=== PATIENT | female | born 1995 | race African-American/Black ===

== ENCOUNTER 2024-04-24 10:14 | Outpatient (REF) | payer OTHER, MEDICAID, SELFPAY ==
--- NOTE | ~2024-04-24 | XR_ITS ---
EXAMINATION: XR HAND 3 OR MORE VIEWS RIGHT HISTORY: M79.641 - Pain in right hand COMPARISON: There are no prior studies available for comparison. FINDINGS: Three views of the right hand are submitted. Osseous mineralization is normal. There is no fracture or dislocation. The joint spaces are preserved. The soft tissues are unremarkable. XR/XR hand RT min 3V IMPRESSION: Unremarkable examination of the right hand. Electronically signed by: Dusty Luna MD 04/25/2024 07:59 AM EDT
--- OUTSIDE RECORDS SUMMARY | 2024-04-24 11:41 | XMS_ITS | Encounter Summary ---
Author Organization [facility] Address [address] [place] [address] Care Team Providers Care Truck Bracer Name Role Phone Jayne Dueñas MD Primary Care Provider Unavailab Aubrey Pringle MD Primary Care Provider Jayne Yoo MD Primary Care Provider Unavailab mcnamara Encounter Details Date Type Department Care Team Description [facility]28[facility] Records [address] [place] [address] Abstract, Provider Social History Tobacco Use Types Packs/Day Years Used Date Smoking Tobacco: Never Smokeless Tobacco: Never Alcohol Use Standard Drinks/Week Comments No 0 (1 standard drink = 0.6 oz pur e alcohol) Sex Assigned at Date Recorded Not on file documented as of this encounter Plan of Treatment Not on file documented as of this encounter Visit Diagnoses Not on filedocumented in this encounter Care Teams Truck Bracer Relationship Specialty Start Date End Date Jayne Dueñas MD PCP - General 12/18/06 11/23/16 Aubrey Montano MD PCP - General Internal Medicine 11/24/16 03/27/19 Jayne Dueñas MD PCP - General Pediatrics 03/28/19 documented as of this encounter
--- OUTSIDE RECORDS SUMMARY | 2024-04-24 11:41 | XMS_ITS | Encounter Summary ---
Author Organization [facility] Address [address] [place] [address] Care Team Providers Care Opinion Polls Survey Worker Name Role Phone Name, Jayme QUIROGA Primary Care Provider [phone] Reason for Visit * Reason Onset Date Comments Appointment 05/06/2022 Encounter Details Date Type Department Care Team ([facility] st Contact Info) Description 05/06/2022 Telephone [facility] [address] [place] [address] Afsaneh Schmidt, DDS [address] [place] [address] Appointment Social History Tobacco Use Types Packs/Day Years Used Date Smoking Tobacco: Never Smokeless Tobacco: Never Comments Unknown Sex and Gender Information Value Date Recorded Sex Assigned at Female 12/13/2021 10:37 AM EDT Legal Sex Female 10:37 AM EDT Gender Identity Female 12/13/2021 10:37 AM EDT Sexual Orientation Straight 12/13/2021 10 :37 AM EDT COVID-19 Exposure Response Date Recorded In the last 10 days, have yo u been in contact with someone who was confirmed or suspected to have Coronavirus/COVID-19? No / Unsure 05/05/2022 2:29 PM EDT documented as of this encounter Miscellaneous Notes * Telephone Encounter - Courtney Donnelly - 05/06/2022 2:20 PM EDT Patient has been infomed thank you. * Telephone Encounter - Courtney Donnelly - 05/06/2022 12:23 PM EDT Luiza Palacio 1995 Patient stated that a mouthwash was supposed to be sent to the pharmacy at the [facility] pharmacy but she stated nothing was sent yet please advise. documented in this encounter Plan of Treatment Not on file documented as of this encounter Visit Diagnoses Not on filedocumented in this encounter Care Teams Opinion Polls Survey Worker Relationship Specialty Start Date End Date Name, MD Jayme [address] [place] [address] PCP - General Family Medicine 09/14/20 06/08/23 documented as of this encounter
--- OUTSIDE RECORDS SUMMARY | 2024-04-24 11:41 | XMS_ITS | Encounter Summary ---
Author Organization [facility] Address [address] [place] [address] Care Team Providers Care Internal Communications Specialist Name Role Phone Jayne Dueñas MD Primary Care Provider Unavailab Aubrey Pringle MD Primary Care Provider Jayne Yoo MD Primary Care Provider Unavailab mcnamara Encounter Details Date Type Department Care Team Description 01/19/2010 Entry Driver Operator Report Medical Records [address] [place] [id number] Grabiel Frey Social History Tobacco Use Types Packs/Day Years Used Date Smoking Tobacco: Never Alcohol Use Standard Drinks/Week Comments Not Asked 0 (1 standard drink = 0.6 oz pur e alcohol) Sex Assigned at Date Recorded Not on file documented as of this encounter Plan of Treatment Not on file documented as of this encounter Visit Diagnoses Not on filedocumented in this encounter Care Teams Internal Communications Specialist Relationship Specialty Start Date End Date Jayne Dueñas MD PCP - General 12/18/06 11/23/16 Aubrey Montano MD PCP - General Internal Medicine 11/24/16 03/27/19 Jayne Dueñas MD PCP - General Pediatrics 03/28/19 documented as of this encounter
--- OUTSIDE RECORDS SUMMARY | 2024-04-24 11:41 | XMS_ITS | Clinical Summary ---
Author Organization [facility] Address [address] [place] [address] Care Team Providers Care Carbon Paper Machine Operator Name Role Phone Unavailable Primary Care Provider Unavailabl e Allergies Active Allergy Reactions Criticality Noted Date Comments Pollen Extract 10/24/2011 Medications naproxen (Naprosyn) 500 MG tablet Take 1 tablet by mouth if needed in the morning and at bedtime. Take with food 11/04/2021 Active sertraline (Zoloft) 25 MG tabletIndicatio ns:Depression with anxiety,Homeles s Take 1 tablet (25 mg) by mouth in the morning for 7 days, THEN 2 tablets (50 mg) in the morning. 67 tablet 3 02/23/2022 Active Active Problems Problem Noted Date Diagnosed Date Anxiety 01/01/2022 Family history of anemia 01/01/2022 Screening for diabetes mellitus 01/01/2022 Screening for cholesterol level 01/01/2022 Immunizations Name Administration Dates Next Due Pfizer Covid-19 Vaccine 12+ 11/11/2020, Tdap 06/21/2021 Social History Tobacco Use Types Packs/Day Years Used Date Smoking Tobacco: Never Smokeless Tobacco: Never Tobacco Cessation:Counseling Given: Not Answered Comments Unknown Sex and Gender Information Value Date Recorded Sex Assigned at Female 12/13/2021 10:37 AM EDT Legal Sex Female 10:37 AM EDT Gender Identity Female 12/13/2021 10:37 AM EDT Sexual Orientation Straight 12/13/2021 10 :37 AM EDT Last Filed Vital Signs Vital Sign Reading Time Taken Comments Blood Pressure 106/72 11/09/2021 12:09 AM EDT Pulse 92 11/09/2021 12:09 AM EDT Temperature - - Respiratory Rate - - Oxygen Saturation - - Inhaled Oxygen Concentration - - Weight 65.8 kg (145 lb) 11/09/2021 12:09 AM EDT Height 160 cm (5' 3 ) 11/09/2021 12:09 AM EDT Body Mass Index 25.69 11/09/2021 12:09 AM EDT Plan of Treatment Health Maintenance Due Date Last Done Comments Dental Prophylaxis 1996 Depression Screening 1996 HIV Screening 1996 SDOH Screening 1996 Alcohol/Substance Use Screening 2008 Family Planning (PISQ) 12/11/2011 Hepatitis C Screening 2014 Pneumococcal Vaccine: Pediatrics (0 to 5 Years) and At-Risk Patients (6 to 49) Years) (1 of 2 - PCV) 12/11/2015 Dental Oral Exam 11/06/2022 05/05/2022 Tobacco Screening 05/06/2023 05/05/2022 Dental X-Ray: Bitewings 05/07/2023 05/05/2022 Pap Smear 10/09/2023 10/08/2020 COVID-19 Vaccine ( season) 2023 11/11/2020, 10/21/2020 Influenza Vaccine (#1) 2023 5, 12/31/2012, 10/24/2011, Additional history exists Dental X-Ray: Full Mouth 05/06/2025 05/05/2022 DTaP/Tdap/Td Vaccines (8 - Td or Tdap) 06/22/2031 06/21/2021, 09/24/2008, 12/15/2000, Additional history exists Zoster Vaccines (1 of 2) 2046 RSV Patients and Patients Aged 60 years or older (1 - 1-dose 75+ series) 12/11/2071 Hepatitis B Vaccines Completed 05/28/1997, 03/30/1997, 01/27/1997 HIB Vaccines Completed 01/27/1998, 05/14, 03/30/1997, Additional history exists IPV Vaccines Completed 12/15/2000, 01/13, 05/28/1997, Additional history exists HPV Vaccines Completed 07/08/2009, 11/14, 09/24/2008 Meningococcal Vaccine Completed 11/25/2014, 009 Hepatitis A Vaccines Aged Out No long er eligible based on patient's age to complete this topic RSV under 20 months Aged Out No longe r eligible based on patient's age to complete this topic Rotavirus Vaccines Aged Out No longer eligible based on patient's age to complete this topic Procedures Procedure Name Priority Date/Time Associated Diagnosis Comments INTRAORAL - COMPLETE SERIES OF RADIOGRAPHIC IMAGES Routine 05/05/2022 3:00 PM EDT Encounter for dental examination Chronic periodontal disease COMPREHENSIVE ORAL EVALUATION - NEW OR ESTABLISHED PATIENT Routine 05/05/2022 3:00 PM EDT Encounter for dental examination Chronic periodontal disease THINPREP PAP Routine 10/08/2020 12:00 AM EDT from Last 3 Months or Most Recently Relevant to Health Maintenance Results * THINPREP PAP (10/08/2020 12:00 AM EDT) Clinical Information: None given [facility] COMMENT SEE COMMENT [facility] Comment: EXPLANATORY NOTE: ? The Pap is a screening test for cervical cancer. It is ?? not a diagnostic test and is subject to false negative ?? and false positive results. It is most reliable when a ?? satisfactory sample, regularly obtained, is submitted ?? with relevant clinical findings and history, and when ?? the Pap result is evaluated along with historic and ?? current clinical information. ?? Chiller Operator : SEE COMMENT [facility] Comment: YP, CT(ASCP) CT screening location: [address] ??[id number] Interpretation/R esult: Negative for intraepithelial lesion or malignancy. [facility] LMP: NONE [facility] Prev. BX: NONE [facility]IV[facility] Prev. PAP: NONE [facility]IVEN [facility] SOURCE: None given [facility] Statement Of Adequacy: SEE COMMENT [facility] Comment: Satisfactory for evaluation. Endocervical/transformation zone component present. Age and/or menstrual status not provided 10/08/2020 Shannon Loepz NP LAB PATHOLOGY ORDERABLES Final Result [facility] [address] from Last 3 Months or Most Recently Relevant to Health Maintenance Insurance [place] [facility] MEDICAID STAND ADULT
--- OUTSIDE RECORDS SUMMARY | 2024-04-24 11:41 | XMS_ITS | Encounter Summary ---
Author Organization [facility] Address [address] [place] [address] Care Team Providers Care Benzol Operator Name Role Phone Jayne Dueñas MD Primary Care Provider Unavailab le Aubrey Montano MD Primary Care Provider Unava ilable Jayne Dueñas MD Primary Care Provider Unavailab le Reason for Visit * Reason Onset Date Comments Head lice 09/11/2014 Encounter Details Date Type Department Care Team Description 09/11/2014 Telephone Pediatrics - [address] [address] Jayne Dueñas MD Head lice Social History Tobacco Use Types Packs/Day Years Used Date Smoking Tobacco: Never Smokeless Tobacco: Never Alcohol Use Standard Drinks/Week Comments No 0 (1 standard drink = 0.6 oz pur e alcohol) Sex Assigned at Date Recorded Not on file documented as of this encounter Miscellaneous Notes * Telephone Encounter - Princess Talley L.P.N. - 09/11/2014 1:50 PM EDT Spoke with Mom, states child has head lice, asking for Ulessia. documented in this encounter Plan of Treatment Not on file documented as of this encounter Visit Diagnoses Not on filedocumented in this encounter Care Teams Benzol Operator Relationship Specialty Start Date End Date Jayne Dueñas MD PCP - General 12/18/06 11/23/16 Aubrey Montano MD PCP - General Internal Medicine 11/24/16 03/27/19 Jayne Dueñas MD PCP - General Pediatrics 03/28/19 documented as of this encounter
--- OUTSIDE RECORDS SUMMARY | 2024-04-24 11:41 | XMS_ITS | Encounter Summary ---
Author Organization [facility] Address [address] [place] [address] Care Team Providers Care Round Boner Name Role Phone Jayne Dueñas MD Primary Care Provider Unavailab Aubrey Pringle MD Primary Care Provider Jayne Yoo MD Primary Care Provider Unavailab naima Encounter Details Date Type Department Care Team Description 10/09/2015 Telephone [facility] - [address] [address] Jayne Dueñas MD Social History Tobacco Use Types Packs/Day Years [...] on filedocumented in this encounter Care Teams Round Boner Relationship Specialty Start Date End Date Jayne Dueñas MD PCP - General 12/18/06 11/23/16 Aubrey Montano MD PCP - General Internal Medicine 11/24/16 03/27/19 Jayne Dueñas MD PCP - General Pediatrics 03/28/19 documented as of this encounter
--- OUTSIDE RECORDS SUMMARY | 2024-04-24 11:42 | XMS_ITS | Encounter Summary ---
Author Organization [facility] Address [address] [place] [address] Care Team Providers Care Staff Nurse Anesthetist Name Role Phone Jayne Dueñas MD Primary Care Provider Aubrey Friedman MD Primary Care Provider Jayne Yoo MD Primary Care Provider Jose mcnamara Encounter Details Date Type Department Care Team Description 02/20/2015 Release of Information Medical Records [address] [place] [id number] Abstract, Provider Social History Tobacco Use Types [...] on filedocumented in this encounter Care Teams Staff Nurse Anesthetist Relationship Specialty Start Date End Date Jayne Dueñas MD PCP - General 12/18/06 11/23/16 Aubrey Montano MD PCP - General Internal Medicine 11/24/16 03/27/19 Jayne Dueñas MD PCP - General Pediatrics 03/28/19 documented as of this encounter
--- OUTSIDE RECORDS SUMMARY | 2024-04-24 11:42 | XMS_ITS | Encounter Summary ---
Author Organization [facility] Address [address] [place] [address] Care Team Providers Care Drapery Installer Name Role Phone Jayne Dueñas MD Primary Care Provider UnavailAubrey Saunders MD Primary Care Provider Jayne Yoo MD Primary Care Provider Jose mcnamara Encounter Details Date Type Department Care Team Description 11/03/2009 Window Trimmer Apprentice Report Medical Records [address] [place] [address] Social History Tobacco Use Types Packs/Day Years Used Date Smoking Tobacco: Never Alcohol Use Standard Drinks/Week Comments Not Asked 0 (1 standard drink = 0.6 oz pur e alcohol) Sex Assigned at Date Recorded Not on file documented as of this encounter Plan of Treatment Not on file documented as of this encounter Visit Diagnoses Not on filedocumented in this encounter Care Teams Drapery Installer Relationship Specialty Start Date End Date Jayne Dueñas MD PCP - General 12/18/06 11/23/16 Aubrey Montano MD PCP - General Internal Medicine 11/24/16 03/27/19 Jayne Dueñas MD PCP - General Pediatrics 03/28/19 documented as of this encounter
--- OUTSIDE RECORDS SUMMARY | 2024-04-24 11:42 | XMS_ITS | Encounter Summary ---
Author Organization [facility] Address [address] [place] [address] Care Team Providers Care Cognos Bi Administrator Name Role Phone Jayne Dueñas MD Primary Care Provider UnavailAubrey Saunders MD Primary Care Provider Jayne Yoo MD Primary Care Provider Jose mcnamara Encounter Details Date Type Department Care Team Description 09/19/2012 Cigar Wrapper Report Medical Records [address] [place] [address] Social History Tobacco Use Types Packs/Day Years [...] on filedocumented in this encounter Care Teams Cognos Bi Administrator Relationship Specialty Start Date End Date Jayne Dueñas MD PCP - General 12/18/06 11/23/16 Aubrey Montano MD PCP - General Internal Medicine 11/24/16 03/27/19 Jayne Dueñas MD PCP - General Pediatrics 03/28/19 documented as of this encounter
== END 2024-04-24 10:15 | disposition home or self-care (01) ==
LOC: HO.HOSX 10:14
DX: M79.641 Pain in right hand (principal)
CPT/HCPCS: 73130

== ENCOUNTER 2024-04-24 14:01 | Outpatient (AMB) | payer OTHER, MEDICAID, SELFPAY ==
[2024-04-24 14:36] VITALS: BMI 28.5
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
--- OUTSIDE RECORDS SUMMARY | 2024-04-24 16:32 | XMS_ITS | Encounter Summary ---
Author Organization [facility] Address [address] [place] [address] Care Team Providers Care Machine Cutter Name Role Phone Jayne Dueñas MD Primary Care Provider Unavailab Aubrey Pringle MD Primary Care Provider Jayne Yoo MD Primary Care Provider Unavailab naima Encounter Details Date Type Department Care Team Description 10/09/2015 Telephone [facility] - [address] [address] Jayne Dueñas MD Social History Tobacco Use [...] on filedocumented in this encounter Care Teams Machine Cutter Relationship Specialty Start Date End Date Jayne Dueñas MD PCP - General 12/18/06 11/23/16 Aubrey Montano MD PCP - General Internal Medicine 11/24/16 03/27/19 Jayne Dueñas MD PCP - General Pediatrics 03/28/19 documented as of this encounter
--- OUTSIDE RECORDS SUMMARY | 2024-04-24 16:32 | XMS_ITS | Clinical Summary ---
Author Organization [facility] Address [address] [place] [address] Care Team Providers Care Stake Setter Name Role Phone Jayne Dueñas MD Primary Care Provider Unavailab le Allergies Active Allergy Reactions Severity Noted Date Comments Seasonal Allergies 10/24/2011 Medications Medication Sig Dispensed Refills Start Date End Date Status hydrocortisone 2.5 % ointment Apply a pea sized amount to affected skin twice a day as needed for dry skin. 60 g 2 02/18/2015 Active loratadine (CLARITIN) 10 MG tablet Take 1 Tab by mouth daily. 30 Tab 5 06/16/2015 Active fluticasone 50 MCG/ACT nasal spray 1 Leroy by Nasal route daily. 1 Bottle 3 06/16/2015 Active Spacer/Aero-Holding Chambers (AEROCHAMBER MV) Misc 1 Container by Does not apply route daily. 1 Each 0 06/16/2015 Active ketotifen (ALAWAY) 0.025 % ophthalmic solution Place 1 Drop into both eyes 2 times daily. 1 Bottle 5 06/16/2015 Active Melatonin 5 MG Tab Take 1 Tab by mouth at bedtime. 30 Tab 6 07/07/2015 Active omeprazole (PRILOSEC) 20 MG capsule TAKE ONE CAPSULE BY MOUTH EVERY DAY 30 Cap 1 10/20/2015 Active ALBUTEROL SULFATE (PROAIR HFA) 108 (90 BASE) MCG/ACT Aero Soln Inhale 2 Puffs into the lungs every 4 hours as needed for Cough, Wheezing or Shortness of Breath (for school). 2 Inhaler 3 05/13/2016 Active budesonide-formotero l (SYMBICORT) 160-4.5 MCG/ACT inhaler Inhale 2 Puffs into the lungs 2 times daily. 1 Inhaler 5 05/13/2016 Active sertraline (ZOLOFT) 50 MG tablet Take 1 Tab by mouth at bedtime. 30 Tab 2 05/13/2016 Active loratadine (CLARITIN) 10 MG tablet Take 1 Tab by mouth daily. 30 Tab 5 05/13/2016 Active ranitidine (ZANTAC) 150 MG tablet Take 1 Tab by mouth at bedtime. 30 Tab 1 05/13/2016 Active Active Problems Problem Noted Date Gastroesophageal reflux disease with eso phagitis 05/13/2016 Learning disabilities 12/31/2012 Overview: IEP, difficulty in math 11/27 no iep Unspecified family circumstance 06/17/19 Overview: Active 51 a 06/24 Active 51 a 07/27 IMO update Seasonal allergies 10/22/2010 Last Assessment & Plan: Claritin, flonase and the alaway eye drops Asthma, mild persistent 10/22/2010 Overview: 01/27 - not using Symbicort Last Assessment & Plan: C/w flovent Scoliosis 10/22/2010 Last Assessment & Plan: 15 degrees, risser 4-5. 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 I referred back to audiology/ent 12/26: preferential seating Last Assessment & Plan: Pt not wearing hearing aides currently. I referred her back to audiology/ent. 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 11/26/19 15 Immunizations Name Administration Dates Next Due DTaP 12/15/2000, 9,05/28/1997,03/30,01/27/1997 HIB 01/27/1998, 8,03/30/1997,01/27 HPV (Gardasil) 07/08/2009,12/04/2008,09/24/2008 Hepatitis B-3 Dose (<19yrs) 05/28/1997, 8,01/27/1997 Influenza (> 6 Months) 12/31/2012,2011,10/22/2010,10/16 Influenza (>6 Months) Split Preservative Free 11/25/2014 Influenza H1N1 Pandemic Flu Vaccine 01/21/2009 MMR (Jfpnbxq-Uytma-Soltwzo) 12/15/2000, 8 Meningococcal (Menactra) 11/25/2014,09/24/2008 Polio (IPV) 12/15/2000 Polio (OPV) 05/28/1997,03/30/1997,01/27/1997 Tdap 09/24/2008 Varicella 05/15/2012,12/15/2000,11/05/1997 Family History Medical History Relation Name Comments Asthma Sister 3 ADHD Sister 4 Relation Name Status Comments Sister 1 Alive 08/28/98 Carleen x Sister 2 Alive 2003 ramiro Sister 3 Sister 4 Social History Tobacco Use Types Packs/Day Years Used Date Smoking Tobacco: Never Smokeless Tobacco: Never Alcohol Use Standard Drinks/Week Comments No 0 (1 standard drink = 0.6 oz pur e alcohol) Sex Assigned at Date Recorded Not on file Last Filed Vital Signs Vital Sign Reading Time Taken Comments Blood Pressure 98/52 07/22/2015 1:45 PM EDT Pulse 112 05/13/2016 9:19 AM EDT Temperature 36.2 ??C (97.1 ??F) 05/13/2016 9:19 AM ED T Respiratory Rate 24 07/22/2015 1:45 PM EDT Oxygen Saturation 98% 07/22/2015 1:45 PM EDT Inhaled Oxygen Concentration - - Weight 56.9 kg (125 lb 6.4 oz) 05/13/2016 9:19 A M EDT Height 160 cm (5' 3 ) 05/13/2016 9:19 AM EDT Body Mass Index 22.21 05/13/2016 9:19 AM EDT Plan of Treatment Health Maintenance Due Date Last Done Comments Covid-19 Vaccine (#1) 06/10/1997 TOBACCO CHECK/ADVISE 2014 BASELINE HEALTH EXAM 18-39 12/11/2015 11/25/2014, PNEUMOCOCCAL VACCINE FOR HIG H RISK PATIENTS (#1) 12/11/2015 CHOLESTEROL SCREENING 2016 CERVICAL CANCER SCREENING 2017 DTAP/TDAP/TD (7 - Td or Tdap) 09/24/2018, 12/15/2000, 03/30/1998, Additional history exists INFLUENZA (#1) 2023 11/25/2014, 12/14, 10/24/2011, Additional history exists BMI CHECK/ADVISE 02/14/2024 11/25/2014, , 12/31/2012, Additional history exists Care Teams Stake Setter Relationship Specialty Start Date End Date Jayne Dueñas MD PCP - General Pediatrics 03/28/19
--- OUTSIDE RECORDS SUMMARY | 2024-04-24 16:32 | XMS_ITS | Encounter Summary ---
Author Organization [facility] Address [address] [place] [address] Care Team Providers Care Security Ambassador Name Role Phone Jayne Dueñas MD Primary Care Provider UnavailAubrey Saunders MD Primary Care Provider Jayne Yoo MD Primary Care Provider Jose mcnamara Encounter Details Date Type Department Care Team Description 05/18/2010 Option Trader Report Medical Records [address] [place] [address] Social History Tobacco Use Types Packs/Day Years Used Date Smoking Tobacco: Never Alcohol Use Standard Drinks/Week Comments Not Asked 0 (1 standard drink = 0.6 oz pur e alcohol) Sex Assigned at Date Recorded Not on file documented as of this encounter Plan of Treatment Not on file documented as of this encounter Visit Diagnoses Not on filedocumented in this encounter Care Teams Security Ambassador Relationship Specialty Start Date End Date Jayne Dueñas MD PCP - General 12/18/06 11/23/16 Aubrey Montano MD PCP - General Internal Medicine 11/24/16 03/27/19 Jayne Dueñas MD PCP - General Pediatrics 03/28/19 documented as of this encounter
--- OUTSIDE RECORDS SUMMARY | 2024-04-24 16:32 | XMS_ITS | Encounter Summary ---
Author Organization [facility] Address [address] [place] [address] Care Team Providers Care Horticulture/Floriculture Teacher Name Role Phone Jayne Dueñas MD Primary Care Provider UnavailAubrey Saunders MD Primary Care Provider Jayne Yoo MD Primary Care Provider Jose mcnamara Encounter Details Date Type Department Care Team Description 05/29/2015 Release of Information Medical Records [address] [place] [address] Abstract, Provider Social History Tobacco Use Types [...] on filedocumented in this encounter Care Teams Horticulture/Floriculture Teacher Relationship Specialty Start Date End Date Jayne Dueñas MD PCP - General 12/18/06 11/23/16 Aubrey Montano MD PCP - General Internal Medicine 11/24/16 03/27/19 Jayne Dueñas MD PCP - General Pediatrics 03/28/19 documented as of this encounter
--- OUTSIDE RECORDS SUMMARY | 2024-04-24 16:32 | XMS_ITS | Encounter Summary ---
Author Organization [facility] Address [address] [place] [address] Care Team Providers Care Waste Disposal Leakage Tester Name Role Phone Jayne Dueñas MD Primary Care Provider Unavailab Aubrey Pringle MD Primary Care Provider Jayne Yoo MD Primary Care Provider Unavailab naima Encounter Details Date Type Department Care Team Description 11/27/2009 Strawberry Grower Report Medical Records [address] [place] [address] Lexi Lopez Social History Tobacco Use Types Packs/Day Years Used Date Smoking Tobacco: Never Alcohol Use Standard Drinks/Week Comments Not Asked 0 (1 standard drink = 0.6 oz pur e alcohol) Sex Assigned at Date Recorded Not on file documented as of this encounter Plan of Treatment Not on file documented as of this encounter Visit Diagnoses Not on filedocumented in this encounter Care Teams Waste Disposal Leakage Tester Relationship Specialty Start Date End Date Jayne Dueñas MD PCP - General 12/18/06 11/23/16 Aubrey Montano MD PCP - General Internal Medicine 11/24/16 03/27/19 Jayne Dueñas MD PCP - General Pediatrics 03/28/19 documented as of this encounter
--- OUTSIDE RECORDS SUMMARY | 2024-04-24 16:32 | XMS_ITS | Encounter Summary ---
Author Organization [facility] Address [address] [place] [address] Care Team Providers Care Entry Level Installation Technician Name Role Phone Jayne Dueñas MD Primary Care Provider Unavailab Aubrey Pringle MD Primary Care Provider Jayne Yoo MD Primary Care Provider Unavailab mcnamara Encounter Details Date Type Department Care Team Description 01/19/2010 Precision Jig Grinder Report Medical Records [address] [place] [address] Grabiel Frey Social History Tobacco Use Types [...] on filedocumented in this encounter Care Teams Entry Level Installation Technician Relationship Specialty Start Date End Date Jayne Dueñas MD PCP - General 12/18/06 11/23/16 Aubrey Montano MD PCP - General Internal Medicine 11/24/16 03/27/19 Jayne Dueñas MD PCP - General Pediatrics 03/28/19 documented as of this encounter
--- OUTSIDE RECORDS SUMMARY | 2024-04-24 16:32 | XMS_ITS | Encounter Summary ---
Author Organization [facility] Address [address] [place] [address] Care Team Providers Care Farm Truck Driver Name Role Phone Name, Jayme QUIROGA Primary Care Provider [phone] Reason for Visit * Reason Onset Date Comments Appointment 05/06/2022 Encounter Details Date Type Department Care Team ([facility] st Contact Info) Description 05/06/2022 Telephone [facility] ADULT DENTAL [address] [place] [address] Afsaneh Schmidt, DDS [address] [place] [address] Appointment Social History Tobacco Use Types Packs/Day [...] be sent to the pharmacy at the [facility] pharmacy but she stated nothing was sent yet please advise. documented in this encounter Plan of Treatment Not on file documented as of this encounter Visit Diagnoses Not on filedocumented in this encounter Care Teams Farm Truck Driver Relationship Specialty Start Date End Date Name, MD Jayme [address] [place] [address] PCP - General Family Medicine 09/14/20 06/08/23 documented as of this encounter
--- OUTSIDE RECORDS SUMMARY | 2024-04-24 16:32 | XMS_ITS | Encounter Summary ---
Author Organization [facility] Address [address] [place] [address] Care Team Providers Care Sanitary Chemist Name Role Phone Jayne Dueñas MD Primary Care Provider Unavailab Aubrey Pringle MD Primary Care Provider Jayne Yoo MD Primary Care Provider Unavailab mcnamara Encounter Details Date Type Department Care Team Description 2009 Department Helper Report Medical Records [address] [place] [address] Grabiel Frey Social History Tobacco Use Types [...] on filedocumented in this encounter Care Teams Sanitary Chemist Relationship Specialty Start Date End Date Jayne Dueñas MD PCP - General 12/18/06 11/23/16 Aubrey Montano MD PCP - General Internal Medicine 11/24/16 03/27/19 Jayne Dueñas MD PCP - General Pediatrics 03/28/19 documented as of this encounter
--- OUTSIDE RECORDS SUMMARY | 2024-04-24 16:32 | XMS_ITS | Clinical Summary ---
Author Organization [employer] Address [address] [place] [address] Care Team Providers Care Retail Brand Ambassador Name Role Phone Unavailable Primary Care Provider [...] historic and ?? current clinical information. ?? Printing Plate Clerk : SEE COMMENT [facility] Comment: YP, CT(ASCP) CT screening location: [address] ??[id number] Interpretation/R esult: Negative for intraepithelial lesion or malignancy. [facility] LMP: NONE [facility] Prev. BX: NONE [facility] Prev. PAP: NONE [facility] SOURCE: None given [facility] Statement Of Adequacy: SEE COMMENT [facility] Comment: Satisfactory for evaluation. Endocervical/transformation zone component present. Age and/or menstrual status not provided 10/08/2020 Shannon Lopez NP LAB PATHOLOGY ORDERABLES Final Result [facility] [address] from Last 3 Months or Most Recently Relevant to Health Maintenance [place] MEDICAID STAND ADULT
--- OUTSIDE RECORDS SUMMARY | 2024-04-24 16:32 | XMS_ITS | Encounter Summary ---
Author Organization [facility] Address [address] [place] [address] Care Team Providers Care Curriculum Coach Name Role Phone Jayne Dueñas MD Primary Care Provider UnavailAubrey Saunders MD Primary Care Provider Jayne Yoo MD Primary Care Provider Jose mcnamara Encounter Details Date Type Department Care Team Description 09/19/2012 Fan Mail Editor Report Medical Records [address] [place] [phone] Social History Tobacco Use Types Packs/Day Years [...] on filedocumented in this encounter Care Teams Curriculum Coach Relationship Specialty Start Date End Date Jayne Dueñas MD PCP - General 12/18/06 11/23/16 Aubrey Montano MD PCP - General Internal Medicine 11/24/16 03/27/19 Jayne Dueñas MD PCP - General Pediatrics 03/28/19 documented as of this encounter
== END 2024-04-24 15:03 | disposition home or self-care (01) ==
LOC: HO.HOS 14:01
PROVIDERS: PCP Internal Medicine
DX: S62.634A Displaced fracture of distal phalanx of right ring finger, initial encounter for closed fracture (principal)
CPT/HCPCS: 99203

== ENCOUNTER → 2024-04-24 14:18 | Outpatient (BNV) | payer OTHER, MEDICAID, SELFPAY | PROVIDERS: Visit Provider Radiology Diagnostic Radiology | DX: M79.641 Pain in right hand (principal) | CPT/HCPCS: 73130 ==

== ENCOUNTER 2024-05-22 08:34 | Outpatient (REF) | payer OTHER, SELFPAY ==
--- OUTSIDE RECORDS SUMMARY | 2024-05-22 08:49 | XMS_ITS | Clinical Summary ---
Author Organization [employer] [facility] Address [address] [place] [address] Care Team Providers Care Oriental Rug Repairer Name Role Phone Unavailable Primary Care Provider [...] historic and ?? current clinical information. ?? Community Pharmacist : SEE COMMENT [facility] Comment: YP, CT(ASCP) CT screening location: [address] ??[address] Interpretation/R esult: Negative for intraepithelial lesion or malignancy. [facility] LMP: NONE [facility] Prev. BX: NONE [facility] Prev. PAP: NONE [facility] SOURCE: None given [facility] Statement Of Adequacy: SEE COMMENT [facility] Comment: Satisfactory for evaluation. Endocervical/transformation zone component present. Age and/or menstrual status not provided 10/08/2020 Shannon Lopez NP LAB PATHOLOGY ORDERABLES Final Result [facility] [address] from Last 3 Months or Most Recently Relevant to Health Maintenance Insurance [place] [facility] MEDICAID STAND ADULT
--- OUTSIDE RECORDS SUMMARY | 2024-05-22 08:49 | XMS_ITS | Encounter Summary ---
Author Organization [employer] [facility] Address [address] [place] [address] Care Team Providers Care Shipper/Receiver Name Role Phone Name, Jayme QUIROGA Primary Care Provider [phone] Reason for Visit * Reason Onset Date Comments Appointment 05/06/2022 Encounter Details Date Type Department Care Team ([facility] st Contact Info) Description 05/06/2022 Telephone [facility] ADULT DENTAL [address] [place] [address] Afsaneh Schmidt, DDS [address] [place] [address] Appointment Social History Tobacco Use Types Packs/Day [...] sent to the pharmacy at the [facility] pharmacy but she stated nothing was sent yet please advise. documented in this encounter Plan of Treatment Not on file documented as of this encounter Visit Diagnoses Not on filedocumented in this encounter Care Teams Shipper/Receiver Relationship Specialty Start Date End Date Name, MD Jayme [address] [place] [address] PCP - General Family Medicine 09/14/20 06/08/23 documented as of this encounter
== END 2024-05-22 08:35 | disposition home or self-care (01) ==
LOC: HO.HOSX 08:34
DX: Z13.89 Encounter for screening for other disorder (principal)

== ENCOUNTER 2024-05-22 09:09 | Outpatient (AMB) | payer OTHER, SELFPAY ==
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
--- OUTSIDE RECORDS SUMMARY | 2024-05-22 09:45 | XMS_ITS | Encounter Summary ---
Author Organization [facility] Address [address] [place] [address] Care Team Providers Care Box Lidder Name Role Phone Jayne Dueañs MD Primary Care Provider Unavailab le Aubrey Montano MD Primary Care Provider Unava ilable Jayne Dueñas MD Primary Care Provider Unavailab le Reason for Visit * Reason Onset Date Comments Head lice 09/11/2014 Encounter Details Date Type Department Care Team Description 09/11/2014 Telephone Pediatrics - [address] [address] Jayne Dueñas MD Head lice Social History [...] on filedocumented in this encounter Care Teams Box Lidder Relationship Specialty Start Date End Date Jayne Dueñas MD PCP - General 12/18/06 11/23/16 Aubrey Montano MD PCP - General Internal Medicine 11/24/16 03/27/19 Jayne Dueñas MD PCP - General Pediatrics 03/28/19 documented as of this encounter
--- OUTSIDE RECORDS SUMMARY | 2024-05-22 09:45 | XMS_ITS | Encounter Summary ---
Author Organization [facility] Address [address] [place] [address] Care Team Providers Care Aviation Metalsmith Name Role Phone Jayne Dueñas MD Primary Care Provider Unavailab Aubrey Pringle MD Primary Care Provider Jayne Yoo MD Primary Care Provider Unavailab naima Encounter Details Date Type Department Care Team Description 11/27/2009 Carry Out Clerk Report Medical Records [address] [place] [address] Lexi Lopez Social History Tobacco Use Types [...] on filedocumented in this encounter Care Teams Aviation Metalsmith Relationship Specialty Start Date End Date Jayne Dueñas MD PCP - General 12/18/06 11/23/16 Aubrey Montano MD PCP - General Internal Medicine 11/24/16 03/27/19 Jayne Dueñas MD PCP - General Pediatrics 03/28/19 documented as of this encounter
--- OUTSIDE RECORDS SUMMARY | 2024-05-22 09:45 | XMS_ITS | Encounter Summary ---
Author Organization [facility] Address [address] [place] [address] Care Team Providers Care Plate Mill Mill Hand Name Role Phone Jayne Dueñas MD Primary Care Provider UnavailAubrey Saunders MD Primary Care Provider Jayne Yoo MD Primary Care Provider Jose mcnamara Encounter Details Date Type Department Care Team Description 05/29/2015 Release of Information Medical Records [address] [place] [id number] Abstract, Provider Social History Tobacco Use Types [...] on filedocumented in this encounter Care Teams Plate Mill Mill Hand Relationship Specialty Start Date End Date Jayne Dueñas MD PCP - General 12/18/06 11/23/16 Aubrey Montano MD PCP - General Internal Medicine 11/24/16 03/27/19 Jayne Dueñas MD PCP - General Pediatrics 03/28/19 documented as of this encounter
--- OUTSIDE RECORDS SUMMARY | 2024-05-22 09:45 | XMS_ITS | Encounter Summary ---
Author Organization [facility] Address [address] [place] [address] Care Team Providers Care Painting Supervisor Name Role Phone Jayne Dueñas MD Primary Care Provider UnavailAubrey Saunders MD Primary Care Provider Jayne Yoo MD Primary Care Provider Jose mcnamara Encounter Details Date Type Department Care Team Description 01/25/2011 Deburr Operator Report Medical Records [address] [place] [address] Social History Tobacco Use Types Packs/Day Years [...] on filedocumented in this encounter Care Teams Painting Supervisor Relationship Specialty Start Date End Date Jayne Dueñas MD PCP - General 12/18/06 11/23/16 Aubrey Montano MD PCP - General Internal Medicine 11/24/16 03/27/19 Jayne Dueñas MD PCP - General Pediatrics 03/28/19 documented as of this encounter
--- OUTSIDE RECORDS SUMMARY | 2024-05-22 09:45 | XMS_ITS | Encounter Summary ---
Author Organization [facility] Address [address] [place] [address] Care Team Providers Care Technical Healthcare Consultant Name Role Phone Jayne Dueñas MD Primary Care Provider Unavailab Aubrey Pringle MD Primary Care Provider Jayne Yoo MD Primary Care Provider Unavailab mcnamara Encounter Details Date Type Department Care Team Description 11/28/[facility] Medical Records [address] [place] [id number] Abstract, Provider Social History Tobacco Use Types [...] on filedocumented in this encounter Care Teams Technical Healthcare Consultant Relationship Specialty Start Date End Date Jayne Dueñas MD PCP - General 12/18/06 11/23/16 Aubrey Montano MD PCP - General Internal Medicine 11/24/16 03/27/19 Jayne Dueñas MD PCP - General Pediatrics 03/28/19 documented as of this encounter
--- OUTSIDE RECORDS SUMMARY | 2024-05-22 09:45 | XMS_ITS | Clinical Summary ---
Author Organization [employer] Address [address] [facility] [address] [place] [address] Care Team Providers Care Driller Portable Name Role Phone Unavailable Primary Care Provider [...] historic and ?? current clinical information. ?? 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 [email or web address] LMP: NONE [facility] Prev. BX: NONE [facility] Prev. PAP: NONE [facility] SOURCE: None given [facility] Statement Of Adequacy: SEE COMMENT [email or web address] Comment: Satisfactory for evaluation. Endocervical/transformation zone component present. Age and/or menstrual status not provided 10/08/2020 Shannon Lopez NP LAB PATHOLOGY ORDERABLES Final Result [facility] [address] from Last 3 Months or Most Recently Relevant to Health Maintenance Insurance [place] [facility] MEDICAID STAND ADULT
--- OUTSIDE RECORDS SUMMARY | 2024-05-22 09:45 | XMS_ITS | Encounter Summary ---
Author Organization [facility] Address [address] [place] [address] Care Team Providers Care Ribbon Cleaner Name Role Phone Jayne Dueñas MD Primary Care Provider Unavailab Aubrey Pringle MD Primary Care Provider Jayne Yoo MD Primary Care Provider Jose mcnamara Encounter Details Date Type Department Care Team Description 11/03/2009 [facility] Report Medical Records [address] [place] [id number] Social History Tobacco Use Types Packs/Day Years Used Date Smoking Tobacco: Never Alcohol Use Standard Drinks/Week Comments Not Asked 0 (1 standard drink = 0.6 oz pur e alcohol) Sex Assigned at Date Recorded Not on file documented as of this encounter Plan of Treatment Not on file documented as of this encounter Visit Diagnoses Not on filedocumented in this encounter Care Teams Ribbon Cleaner Relationship Specialty Start Date End Date Jayne Dueñas MD PCP - General 12/18/06 11/23/16 Aubrey Montano MD PCP - General Internal Medicine 11/24/16 03/27/19 Jayne Dueñas MD PCP - General Pediatrics 03/28/19 documented as of this encounter
--- OUTSIDE RECORDS SUMMARY | 2024-05-22 09:45 | XMS_ITS | Encounter Summary ---
Author Organization [employer] [facility] Address [address] [facility] [address] [place] [address] Care Team Providers Care Stress Analyst Name Role Phone Name, Jayme QUIROGA Primary Care Provider [phone] Reason for Visit * Reason Onset Date Comments Appointment 05/06/2022 Encounter Details Date Type Department Care Team ([facility] st Contact Info) Description 05/06/2022 Telephone [facility] [address] [place] [address] Afsaneh Schmidt, DDS [address] [place] [address] Appointment Social History Tobacco Use Types Packs/Day [...] be sent to the pharmacy at the [facility] but she stated nothing was sent yet please advise. documented in this encounter Plan of Treatment Not on file documented as of this encounter Visit Diagnoses Not on filedocumented in this encounter Care Teams Stress Analyst Relationship Specialty Start Date End Date Name, MD Jayme [address] [place] [address] PCP - General Family Medicine 09/14/20 06/08/23 documented as of this encounter
--- OUTSIDE RECORDS SUMMARY | 2024-05-22 09:45 | XMS_ITS | Encounter Summary ---
Author Organization [facility] Address [address] [place] [address] Care Team Providers Care Data Sme Name Role Phone Jayne Dueñas MD Primary Care Provider Unavailab Aubrey Pringle MD Primary Care Provider Jayne Yoo MD Primary Care Provider Unavailab mcnamara Encounter Details Date Type Department Care Team Description 01/19/2010 Biology Intern Report Medical Records [address] [place] [id number] Grabiel Frey Social History Tobacco Use Types [...] on filedocumented in this encounter Care Teams Data Sme Relationship Specialty Start Date End Date Jayne Dueñas MD PCP - General 12/18/06 11/23/16 Aubrey Montano MD PCP - General Internal Medicine 11/24/16 03/27/19 Jayne Dueñas MD PCP - General Pediatrics 03/28/19 documented as of this encounter
== END 2024-05-22 09:31 | disposition home or self-care (01) ==
LOC: HO.HOS 09:10
DX: S62.664A Nondisplaced fracture of distal phalanx of right ring finger, initial encounter for closed fracture (principal)
CPT/HCPCS: 99213